=== PATIENT | male | born 1995 | race Caucasian/White ===

== ENCOUNTER 2017-07-30 18:53 | Emergency (ER) | payer BC ==
[~2017-07-30] VITALS: Ht 182.9 cm; Wt 59.0 kg
[~2017-07-30 18:53] MED LIST: Polytrim Eye Dr10 ML RIGHTEYE
[2017-07-30 19:48] LABS: Source, Urine Clean Catch
[2017-07-30 19:58] LABS: Appearance, Urine Cloudy (Clear); Bilirubin, Urine Neg (Neg); Blood, Urine 4+ (Neg); Color, Urine Yellow (P-Yellow); Glucose Qualitative, Urine Neg (Neg); Ketones, Urine Neg (Neg); Leukocyte Esterase, Urine 3+ (Neg); Nitrite, Urine Neg (Neg); Protein, Urine 3+ (Neg); Specific Gravity, Urine 1.025 (1.003-1.022); Urobilinogen, Urine NORM (Normal)
[2017-07-30 20:00] LABS: Calcium, Ionized (POC) 1.18 mmol/L (1.10-1.46); Chloride (POC) 102 mmol/L (98-108); Glucose (ISTAT POC) 85 mg/dL (70-99); Hemoglobin (POC) 14.3 g/dL (13.5-17.5); Potassium (POC) 3.7 mmol/L (3.5-5.5); Sodium (POC) 143 mmol/L (135-148); Total CO2 (POC) 27 mmol/L (21-32)
[2017-07-30 20:31] LABS: Squamous Epithelial Cells Few /hpf (Few)
[2017-07-30 20:32] LABS: Bacteria Mod /hpf; White Blood Cells, Urine 50-100 /hpf (0-5)
[2017-07-30] MEDS ORDERED: Keflex500 MG PO (20:43)
== END 2017-07-30 20:50 | disposition home or self-care (01) ==
LOC: ER 18:53
PROVIDERS: Physician Assistant
DX: N39.0 Urinary tract infection, site not specified (principal); R55 Syncope and collapse; F17.200 Nicotine dependence, unspecified, uncomplicated
CPT/HCPCS: 36415; 80047; 81001; 85014; 87077; 87086; 87186; 93005; 93010; 99283

== ENCOUNTER 2018-10-24 17:30 | Emergency (ER) | payer OTHER ==
[~2018-10-24] VITALS: Ht 185.4 cm; Wt 59.0 kg
[~2018-10-24 17:30] MED LIST changes: +Keflex500 MG PO
[2018-10-24] MEDS ORDERED: PENVK500 PO (20:10)
[2018-10-24] MEDS ORDERED: Norco 5-325 Ta1 EACH PO (20:10)
== END 2018-10-24 20:24 | disposition home or self-care (01) ==
LOC: ER 17:30
DX: S02.5XXA Fracture of tooth (traumatic), initial encounter for closed fracture (principal); S01.81XA Laceration without foreign body of other part of head, initial encounter; S01.512A Laceration without foreign body of oral cavity, initial encounter; S40.812A Abrasion of left upper arm, initial encounter; S80.212A Abrasion, left knee, initial encounter; E61.1 Iron deficiency; V29.9XXA Motorcycle rider (driver) (passenger) injured in unspecified traffic accident, initial encounter
CPT/HCPCS: 12011; 70486; 73562-LT; 99284-25

== ENCOUNTER → 2021-01-26 | Outpatient (CLI) | payer OTHER ==
[~2021-01-26] MED LIST changes: +Norco 5-325 Ta1 EACH PO; +PENVK500 PO
== END | disposition home or self-care (01) ==
LOC: LAB SHORT 12:39 → LAB 12:39
DX: R30.9 Painful micturition, unspecified (principal)
CPT/HCPCS: 87086